=== PATIENT | male | born 1975 | race Caucasian/White ===

== ENCOUNTER 2021-04-03 16:29 | Emergency (ER) | payer OTHER, SELFPAY ==
--- NOTE | ~2021-04-03 | XR_ITS ---
EXAMINATION: [id number] INDICATION: Right rib pain TECHNIQUE: A frontal view of the chest and 3 views of the right ribs were obtained. COMPARISON: None. FINDINGS: The lungs are free of acute opacities. There is no pleural effusion or pneumothorax. No dis placed rib fracture is identified. The cardiomediastinal silhouette is normal. IMPRESSION: 1. No acute cardiopulmonary abnormality or evidence of displaced rib fracture. Reviewed, dictated and finalized at location B. [facility]
[2021-04-03 16:32] VITALS: BP 141/94; PULSE 67; RESP 16; TEMP 35.8; O2SAT 98
[2021-04-03 17:30] VITALS: BP 140/70; PULSE 70; RESP 18; O2SAT 99
--- NOTE | 2021-04-03 18:06 | ED.FALL ---
HPI - Fall General Chief Complaint: Fall Stated Complaint: fall Time Seen by Provider: 04/03/21 17:56 Source: RN notes reviewed History of Present Illness HPI Narrative: Patient presents to emergency department from home for right-sided chest pain. Patient states he was at work today and was loading a skid when he fell landing on his right anterior lateral chest wall states that since that time he had pain in this region with pain increased with deep inspiration and movement of the torso states that he took a Tylenol for the pain at approximately noon today was had no other pain medication he denies striking his head or any other injury states that he was at ground level when he fell denies any other symptoms at this time Review of Systems Review of Systems: Gen.: Denies fevers or chills ENT: Denies congestion Respiratory: Denies shortness of breath or cough CV: Denies chest pain or palpitations GI: Denies abdominal pain nausea, emesis or diarrhea Musculoskeletal: See HPI Neuro: Denies numbness, tingling, weakness or focal weakness Skin: Denies rash Except as documented, all other systems reviewed and negative [facility] Past Medical History Medical History (Updated 04/03/21 @ 18:09 by Javi Gonzalez DO) Patient denies significant medical history Social History Social History (Updated 04/03/21 @ 18:08 by Javi Gonzalez DO) Smoking status: Current every day smoker Exam Narrative: APPEARANCE: No acute distress, nontoxic, resting in bed EYES: EOMI HEENT: Normocephalic, atraumatic, OMM RESPIRATORY: No respiratory distress Clear to auscultation bilaterally with no rhonchi wheezing or rales. CARDIOVASCULAR: Regular rate and rhythm without murmurs rubs or gallops. Chest: Tender palpation over the right anterior superior chest wall just to the right of the mid clavicular line in the region of ribs 3 through 5 pain increased with deep inspiration movement the torso no overlying ecchymosis ABDOMINAL: Soft, nontender, nondistended, no rebound or guarding no tenderness in the right upper quadrant MUSCULOSKELETAl: Moves all extremities. No clubbing, cyanosis or edema. NEURO: Awake and alert. Following commands, speech normal, no focal deficits SKIN:: Warm, dry. No rashes lesions or abrasions PSYCHIATRIC: Normal affect/mood, Course Course Emergency Course: Discussed with patient results of workup and diagnosis. Discussed need for follow-up with primary care, proper use of medication, and reasons to return to the emergency department. Patient understands and agrees to current treatment plan Vital Signs Vital signs: Vital Signs Temperature 96.5 F L 04/03/21 16:32 Pulse Rate 67 04/03/21 16:32 Respiratory Rate 16 04/03/21 16:32 Blood Pressure 141/94 H 04/03/21 16:32 Pulse Oximetry 98 04/03/21 16:32 Temperature 96.5 F L 04/03/21 16:32 Pulse Rate 70 04/03/21 17:30 Respiratory Rate 18 04/03/21 17:30 Blood Pressure 140/70 04/03/21 17:30 Pulse Oximetry 99 04/03/21 17:30 MDM - Fall Imaging Data Radiologist's impression: ITS Impressions Ribs w/Chest X-Ray 04/03/21 16:53 IMPRESSION: 1. No acute cardiopulmonary abnormality or evidence of displaced rib fracture. Discharge Plan Discharge Clinical Impression: Chest wall contusion Patient Disposition: Home, Self-Care Condition: Stable Instructions: Antibiotic Form, Rib Contusion (ED) Additional Instructions: Return for increasing pain shortness of breath or any other symptoms of concern Prescriptions: New ibuprofen [IBU] 600 mg tablet 600 mg PO Q6H PRN (Reason: pain) Qty: 20 RF: 0 Follow-up/Referrals: PHYSICIAN NOT ON STAFF,NONSTAFF [Primary Care Provider] - Nawaf Mauricio MD [Physician] - 2 Days Time of Disposition: 18:10
[2021-04-03] MEDS: IBUPROFEN 600 MG TABLET PO (18:17)
== END 2021-04-03 18:38 | disposition home or self-care (01) ==
PROVIDERS: Emergency Provider Emergency Medicine
DX: S20.219A Contusion of unspecified front wall of thorax, initial encounter (principal); F17.210 Nicotine dependence, cigarettes, uncomplicated; W18.39XA Other fall on same level, initial encounter
CPT/HCPCS: 71101; 99283; A9270

== ENCOUNTER 2023-01-17 15:13 | Emergency (ER) | payer OTHER, SELFPAY ==
--- NOTE | ~2023-01-17 | XR_ITS ---
EXAMINATION: XR forearm RT 2V DATE: 01/17/2023 15:53 INDICATION: Right forearm injury. TECHNIQUE: 2 views of right forearm were obtained. COMPARISON: None. FINDINGS: Bone alignment is normal. No fracture. Joint spaces are well maintained. There is no elbow joint effusion. There is a laceration of the dorsal forearm. No radiopaque foreign body. IMPRESSION: 1. No fracture or radiopaque foreign body. Reviewed, dictated and finalized at location E.
[2023-01-17 15:17] VITALS: BP 110/54; PULSE 64; RESP 20; TEMP 35.5; O2SAT 97
--- NOTE | 2023-01-17 15:29 | PC.NURSE ---
Pt states he feels like he is going to pass out. Pt placed supine on stretcher. Pt states that has helped
[2023-01-17] MEDS: ACETAMINOPHEN 500 MG TABLET 1000 MG (15:50)
[2023-01-17] MEDS: IBUPROFEN 400 MG TABLET 800 MG (15:51)
--- NOTE | 2023-01-17 15:55 | ED.WOUNDLAC ---
HPI - Wound/Laceration General Chief Complaint: Wound/Laceration Stated Complaint: R arm laceration Time Seen by Provider: 01/17/23 15:25 History of Present Illness HPI narrative: Patient is a 47-year-old male presenting with a laceration. Patient states that he was mowing grass when he accidentally ran into a telephone pole and cut his right arm on a piece of metal. States his whole right forearm hurts. He denies further injuries or complaints. He is unsure on Tdap status. Related Data Allergies Allergy/AdvReac Type Severity Reaction Status Date / Time No Known Allergies Allergy Verified 01/17/23 15:33 Review of Systems Review of Systems: All systems reviewed & are unremarkable except as noted in HPI and below PMFSH Past Medical History Medical History Patient denies significant medical history Social History Social History Smoking status: Current every day smoker Exam Narrative: GENERAL: Well-appearing, well-nourished, and in no acute distress. HEAD: Normocephalic, atraumatic. EYES: PERRLA and EOMI. ENT: Nares clear, no rhinorrhea or epistaxis. NECK: Supple. CHEST: No respiratory distress. HEART: Regular rate and rhythm. Normal peripheral pulses. ABDOMEN: Nondistended EXTREMITIES: Normal range of motion. No edema. SKIN: Warm, dry, no rash. 4 cm laceration right forearm, bleeding is well controlled NEURO: No focal deficits. Alert and oriented x3. PSYCH: Normal mood and affect. Course Vital Signs Vital signs: Vital Signs Temperature 96 F L 01/17/23 15:17 Pulse Rate 64 01/17/23 15:17 Respiratory Rate 20 01/17/23 15:17 Blood Pressure 110/54 L 01/17/23 15:17 Pulse Oximetry 97 01/17/23 15:17 Oxygen Delivery Room Air 01/17/23 15:17 Temperature 96 F L 01/17/23 15:17 Pulse Rate 64 01/17/23 15:17 Respiratory Rate 20 01/17/23 15:17 Blood Pressure 110/54 L 01/17/23 15:17 Pulse Oximetry 97 01/17/23 15:17 Oxygen Delivery Room Air 01/17/23 15:17 Procedures Laceration Laceration 1: Date: 01/17/23 Time: 17:45 Site: upper extremity Side (If applicable): right Size (cm): 4.5 Description: irregular Depth: simple, single layer Local Anesthetic: lidocaine 1% and with epi Pre-repair: wound explored and irrigated ====== Skin Level ====== Skin layer closed with: nylon Size (cm): 3-0 Number of sutures: 8 Technique: simple, interrupted ====== Subcutaneous Layer ====== ====== Muscle Layer ====== ====== Tendon Layer ====== MDM - Wound/Laceration MDM Narrative Medical decision making narrative: Patient is a 47-year-old male presenting with a laceration to his arm. Vitals are stable. Exam remarkable for the above. X-ray ordered for his forearm. Will update Tdap, Tylenol and ibuprofen for pain control. X-ray without fracture or foreign body. Laceration repaired at bedside without complication. Please see procedure note for further detail. Discussed appropriate supportive care. Advised the of the sutures removed within 14 days. Appropriate return precautions given. Patient voiced understanding and is agreeable with plan. Discharged in stable condition. Differential Diagnosis Differential diagnosis: Likely laceration and avulsion of skin Medical Records Attestation: I reviewed the patient's medical records. Imaging Data Radiologist's impression: ITS Impressions Forearm X-Ray 01/17/23 16:01 IMPRESSION: 1. No fracture or radiopaque foreign body. Critical Care Time Critical Care Time Critical Care Time: No Discharge Plan Discharge Clinical Impression: Laceration Patient Disposition: Home, Self-Care Condition: Stable Instructions: Antibiotic Form, Care For Your Stitches (ED), Laceration (ED) Additional Ins
[2023-01-17] MEDS: TETANUS,DIPHTHERIA,AC PERTUSSIS ADULT (0.5 ML) BOOSTRIX IM (16:03)
[2023-01-17] MEDS: LIDO 1%/EPINEPHRINE 1:100,000 20 ML VIAL 10 ML INFILTRATE (16:04)
== END 2023-01-17 18:03 | disposition home or self-care (01) ==
PROVIDERS: Emergency Provider Emergency Medicine
DX: S51.811A Laceration without foreign body of right forearm, initial encounter (principal); F17.210 Nicotine dependence, cigarettes, uncomplicated; W22.09XA Striking against other stationary object, initial encounter; Z23 Encounter for immunization
CPT/HCPCS: 12002; 73090; 90471; 90715; 99283; A9270

== ENCOUNTER 2024-04-30 17:29 | Emergency (ER) | payer OTHER, SELFPAY ==
[2024-04-30 17:30] VITALS: BP 138/85; PULSE 78; RESP 17; TEMP 36.6; O2SAT 97
[2024-04-30 19:01] VITALS: BP 130/76; PULSE 81; RESP 16; TEMP 36.8; O2SAT 100
--- NOTE | 2024-04-30 19:20 | ED.DENTAL ---
HPI - Dental/Oral General Chief complaint: Dental/Oral Stated complaint: toothache Time Seen by Provider: 04/30/24 18:54 History of Present Illness HPI Narrative: 48-year-old otherwise healthy male presenting to the emergency department for evaluation of her right-sided toothache. Patient states he has been having pain since yesterday. Feels like he might cracked tooth on something. Has been having hot and cold sensitivities as well as pain persistent throughout the day. He has been trying some ibuprofen at home without any relief of his pain. Had to leave work early today secondary to the severe pain. Pain is in his right lower jaw but started radiating towards his right ear. No headache, vision changes, nausea vomiting, Sore throat, chest pain, or difficulty breathing. Related Data Allergies Allergy/AdvReac Type Severity Reaction Status Date / Time No Known Allergies Allergy Verified 01/17/23 15:33 Review of Systems Review of Systems: as reviewed above in HPI PMFSH Past Medical History Medical History Patient denies significant medical history Social History Social History Smoking status: Current every day smoker Exam Narrative: GENERAL: [Well-appearing, well-nourished, and in no acute distress.] HEAD: [Normocephalic, atraumatic.] EYES: [PERRLA and EOMI.] ENT: poor oral dentition at baseline, lower right-sided mandibular jaw with premolar that is tender to palpation and percussion and does have a obvious dental fracture without exposure of the pulp. No periapical abscess or any drainage. No overlying erythema, no bleeding. No mucosal tenderness or skin changes externally NECK: Supple. CHEST: [Clear to auscultation. No respiratory distress.] HEART: [Regular rate and rhythm]. No murmur heard. [Normal peripheral pulses.] ABDOMEN: [Soft, nondistended], [nontender], [No rigidity or guarding] EXTREMITIES: Normal range of motion. [No edema.] SKIN: Warm, dry, no rash. NEURO: [No focal deficits]. Alert and oriented [x3.] PSYCH: [Normal mood and affect.] Course Vital Signs Vital signs: Vital Signs Temperature 36.6 C 04/30/24 17:30 Pulse Rate 78 04/30/24 17:30 Respiratory Rate 17 04/30/24 17:30 Blood Pressure 138/85 04/30/24 17:30 Pulse Oximetry 97 04/30/24 17:30 Oxygen Delivery Room Air 04/30/24 17:30 Temperature 36.8 C 04/30/24 19:01 Pulse Rate 81 04/30/24 19:01 Respiratory Rate 16 04/30/24 19:01 Blood Pressure 130/76 04/30/24 19:01 Pulse Oximetry 100 04/30/24 19:01 Oxygen Delivery Room Air 04/30/24 19:01 MDM - Dental/Oral MDM Narrative Medical decision making narrative: 48-year-old male presenting with right-sided dental debbie with a dental fracture that is symptomatic. Symptoms ongoing for the last day and refractory to [id number] medications including ibuprofen at home. Overall he appears well not any acute distress and has normal vital signs. He is afebrile, tolerating his oral secretions but is having pain with any food in chewing. He has a dental debbie and dental fracture of the same tooth on the lower right-sided mandibular jaw. Poor dentition other teeth but they are currently asymptomatic. Has not called his dentist yet but is planning on calling him tomorrow morning. Given the symptomatic dental caries and dental fracture we will treat him with a dose of pain control medications including intramuscular Toradol and start him on Augmentin for infection treatment. We will send him home with a course of as needed breakthrough pain oxycodone encouraged to take ibuprofen Tylenol around the clock as directed on the [id number] medications in addition for baseline relief of his pain until he can see his dentist. Prescriptions will be sent to his preferred local pharmacy. Patient had improvement after the intramuscular Toradol here on re-evaluation and was stable for discharge home at this time. Differential Diagnosis Differential diagnosis: Likely gingival abscess, dental caries, toothache, dental abscess, fracture of tooth and aphthous ulcer Medical Records Attestation: I reviewed the patient's medical records. Discharge Plan Discharge Clinical Impression: Fracture, tooth, Dental caries Patient Disposition: Home, Self-Care Condition: Stable Instructions: Antibiotic Form, Acute Dental Trauma (ED), Toothache (ED) Additional Instructions: call your dentist at your earliest convenience tomorrow and continue taking the antibiotic as directed. We have given you a short course of pain medications as needed. Return with any new or worsening concerns. 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
[2024-04-30] MEDS: AMOXICILLIN/CLAVULANATE K 875-125 MG TAB 1 TABLET PO (19:36)
[2024-04-30] MEDS: KETOROLAC 30 MG/ML VIAL (*BKC) IM (19:36)
== END 2024-04-30 19:37 | disposition home or self-care (01) ==
PROVIDERS: Emergency Provider Student in an Organized Health Care Education/Training Program
DX: K02.9 Dental caries, unspecified (principal); K03.81 Cracked tooth; F17.200 Nicotine dependence, unspecified, uncomplicated
CPT/HCPCS: 96372; 99283; A9270; J1885